=== PATIENT | female | born 1990 | race Caucasian/White ===

== ENCOUNTER 2017-05-19 20:56 | Emergency (ER) | payer OTHER ==
[~2017-05-19] VITALS: Ht 147.3 cm; Wt 65.0 kg
[~2017-05-19 20:56] MED LIST: BUPR300T PO; DEPO150I IM; VALA1TAB PO; WELLTAB39 PO
[2017-05-19 20:57] VITALS: BP 128/87; PULSE 93; RESP 18; TEMP 97.9; O2SAT 98
[2017-05-19] MEDS ORDERED: AMOXICILLIN (TRIHYDRATE) 500 MG CAP PO ONE (21:30)
[2017-05-19] MEDS ORDERED: DEXAMETHASONE 4 MG TAB PO ONE ×2 (21:30→22:45)
[2017-05-19] MEDS ORDERED: DEXAMETHASONE 6 MG TAB PO ONE (21:30)
[2017-05-19] MEDS ORDERED: PENI500T PO (21:31)
--- NOTE | 2017-05-19 21:34 | PD ---
HPI Chief Complaint: ENT Complaint Time Seen by Provider: 21:26 Travel History International Travel<30 days: No Contact w/Intl Traveler<30days: No Traveled to known affect area: No History of Present Illness HPI 27 year white female presents to emergency Department with complaints of sore throat. She states that she's been sick for nearly 2 weeks. She has had some subjective fever and chills, ear pain, sore throat, hoarse voice, difficulty swallowing, cough, congestion and general malaise. Some nausea but no vomiting. No abdominal pain or urinary symptoms. Symptoms are moderate. Worse with swallowing. No alleviating factors. PFSH Past Medical History Narrative Medical Depression, genital herpes Depression: Yes Respiratory: Yes (SPORTS INDUCED ASTHMA) Tetanus Vaccination: < 5 Years ?: Not LMP: N/A Past Surgical History Narrative Surgical Hysterectomy Hysterectomy: Yes (PARTIAL) Other Surgery: Yes (FACIAL RECONSTRUCTION) Social History Alcohol Use: Yes (2 XS WEEKLY) Tobacco Use: No Substance Use: No Allergies-Medications (Allergen,Severity, Reaction): Coded Allergies: No Known Allergies (Unverified Adverse Reaction, Unknown, 05/19/17) Reported Meds & Prescriptions Reported Meds & Active Scripts Active Bupropion HCl ER 24 HR (Bupropion HCl) 300 Mg Tab 300 Mg PO DAILY 30 Days Valacyclovir (Valacyclovir HCl) 1,000 Mg Tab 1,000 Mg PO BID Depo-Provera Inj (Medroxyprogesterone Inj) 150 Mg/Ml Inj 150 Mg IM ONCE Reported Wellbutrin Xl 24 HR (Bupropion HCl) 300 Mg Tab 300 Mg PO DAILY Valacyclovir (Valacyclovir HCl) 1 Gm Tab 1,000 Mg PO BID Review of Systems General / Constitutional: Positive: Fever, Chills Eyes: No: Visual changes HENT: Positive: Sore Throat, Congestion, Earache, No: Headaches Cardiovascular: No: Chest Pain or Discomfort Respiratory: Positive: Cough, Shortness of Breath Gastrointestinal: Positive: Nausea, No: Vomiting, Abdominal Pain Genitourinary: No: Dysuria Musculoskeletal: No: Pain Skin: No Rash Neurologic: No: Weakness Psychiatric: No: Depression Endocrine: No: Polydipsia Hematologic/Lymphatic: No: Easy Bruising Physical Exam Narrative GENERAL: Well-developed, well-nourished in no acute distress. Nontoxic appearing. HEAD: Normocephalic, atraumatic. EYES: Pupils equal round and reactive. Extraocular motions intact. No scleral icterus. No injection or drainage. ENT: TMs clear without erythema. The external auditory canals clear. Nose: clear . Posterior pharynx is erythematous and moist. Mild tonsillar edema but no exudate. Uvula midline. Airway patent. NECK: Trachea midline.Supple, nontender, moves head freely. No central bony tenderness or spasm. CARDIOVASCULAR: Regular rate and rhythm without murmurs, gallops, or rubs. RESPIRATORY: Clear to auscultation. Breath sounds equal bilaterally. No wheezes , rales, or rhonchi. GASTROINTESTINAL: Abdomen soft, non-tender, nondistended. No hepato-splenomegaly , or palpable masses. No guarding. EXTREMITIES: No clubbing, cyanosis, or edema. No joint tenderness, effusion, or edema noted. BACK: Nontender without deformity or crepitance. No flank tenderness. Data Data Last Documented VS Vital Signs Date Time Temp Pulse Resp B/P (MAP) Pulse Ox O2 Delivery O2 Flow Rate FiO2 05/19/17 20:57 97.9 93 18 128/87 (101) 98 Room Air Orders Orders Amoxicillin (Trimox) (05/19/17 21:30) Dexamethasone (Decadron) (05/19/17 21:30) Dexamethasone (Decadron) (05/19/17 21:30) MDM Medical Decision Making Medical Screen Exam Complete: Yes Emergency Medical Condition: Yes Medical Record Reviewed: Yes Differential Diagnosis MDM: High Differential diagnoses: Strep throat, viral pharyngitis, mono, peritonsillar abscess, retropharyngeal abscess, Skyler's angina Narrative Course This is acute pharyngitis. Patient is given Amoxil 500 and Decadron 10 mg by mouth. Diagnosis Primary Impression: Acute pharyngitis Qualified Codes: J02.8 - Acute pharyngitis due to other specified organisms Patient Instructions: General Instructions Additional Instructions: Rest. Force fluids. Saltwater gargles. Tylenol and Advil. Chloraseptic [place] Cepastat lozenge. Pen-Vee K. Follow-up with a primary care doctor in one week. Return to the ER if any problems. Med/Other Pt SpecificInfo: Prescription(s) given Scripts Penicillin V Potassium (Penicillin V Potassium) 500 Mg Tab 500 MG PO Q12HR for Infection for 10 Days, TAB 0 Refills Prov: Noel Zuñiga MD 05/19/17 Disposition: 01 DISCHARGE HOME Condition: Stable Joby Fajardo May 19, 2017 21:34
== END 2017-05-19 22:37 | disposition home or self-care (01) ==
LOC: NEPK 20:56
DX: J02.9 Acute pharyngitis, unspecified (principal); R05 Cough; R11.0 Nausea; R50.9 Fever, unspecified; R53.81 Other malaise; F32.9 Major depressive disorder, single episode, unspecified
CPT/HCPCS: 99283; J8540